=== PATIENT | female | born 1955 | race Caucasian/White ===

== ENCOUNTER 2018-10-18 10:19 | Emergency (ER) | payer OTHER ==
[2018-10-18] MEDS ORDERED: NA CHLORIDE 0.9% 1,000 ML ONE (10:54)
[2018-10-18 11:04] LABS: Absolute Lymphocytes (CBC) 1.3 K/uL (0.7-4.9); Absolute Monocytes 0.9 K/uL (0.1-1.3); Absolute Neutrophil 10.4 K/uL (1.8-8.0); Basophils % 0.3 % (0-1.3); Hematocrit 38.4 % (36.0-45.0); Lymphocytes % 10.1 % (15.3-44.8); MPV 9.7 fL (7.6-11.3); RBC Red Blood Cell Count 4.09 M/uL (3.86-4.86)
[2018-10-18] MEDS ORDERED: LIDOCAINE 1% MPF 5 ML VIAL ONE (11:06)
[2018-10-18 11:29] LABS: Potassium 3.5 mmol/L (3.5-5.1)
--- NOTE | 2018-10-18 12:14 | RAD REPORT ---
EXAM DESCRIPTION: CT - Chest For Pe Angio - 10/18/2018 11:58 am CLINICAL HISTORY: cough COMPARISON: None. TECHNIQUE: Dynamically enhanced axial 3 mm thick images of the chest were obtained during administra tion of <100> mL Isovue 370 IV contrast. Coronal and oblique reconstruction images were generated and reviewed. Exam utilizes a protocol for optimal evaluation of pulmonary arterial tree. Maximum intensity projections 3D imaging was utilized All CT scans are performed using dose optimization technique as appropriate and may include automated exposure control or mA/KV adjustment according to patient size. FINDINGS: A pulmonary embolus is not seen. Pulmonary artery is mildly enlarged which can be seen wit h pulmonary arterial hypertension A thoracic aortic aneurysm is not noted. A pleural effusion is not seen. A pericardial effusion is not seen. A lung consolidation is not present. IMPRESSION: Negative for a pulmonary embolism.
--- NOTE | 2018-10-18 12:23 | ER ---
Nurse's Notes [facility] Name: Dayanna Iniguez Age: 63 yrs Sex: Female : 1955 Arrival Date: 10/18/2018 Time: 10:23 Bed 7 Private MD: Diagnosis: Bronchitis, not specified as acute or chronic Presentation: 10/18 10:23 Presenting complaint: Patient states: i have this cough for 3 weeks now, went to my allergologist, and gave me a Rx of doxycycline, Tessalon pearls and a shot of steroid and i went to [facility], for some reason they gave me a haldol shot; xray was taken and they said it was clear; denies fever and chills; reports night sweats;. Transition of care: patient was not received from another setting of care. Onset of symptoms was October 18, 2018. Risk Assessment: Do you want to hurt yourself or someone else? Patient reports no desire to harm self or others. Initial Sepsis Screen: Does the patient meet any 2 criteria? No. Patient's initial sepsis screen is negative. Does the patient have a suspected source of infection? No. Patient's initial sepsis screen is negative. Care prior to arrival: None. 10:23 Method Of Arrival: Ambulatory 10:23 Acuity: JAYDON 3 hj Historical: - Allergies: 10:28 Reglan; 10:28 Haldol; - Home Meds: 10:28 Cymbalta 60 mg oral cpDR 1 cap once daily [Active]; Neurontin 300 mg Oral cap 1 cap 3 hj times per day [Active]; - PMHx: 10:28 neuropahty; - PSHx: 10:28 Appendectomy; Hysterectomy; rotator; hj - Immunization history:: Adult Immunizations up to date. - Social history:: Smoking status: Patient/guardian denies using tobacco. - Ebola Screening: : No symptoms or risks identified at this time. Screenin:35 Abuse screen: Denies threats or abuse. Denies injuries from another. Nutritional sv screening: No deficits noted. Tuberculosis screening: No symptoms or risk factors identified. Fall Risk None identified. Assessment: 10:35 General: Appears in no apparent distress. uncomfortable, well developed, Behavior is sv cooperative, appropriate for age. Pain: Complains of pain in throat Pain currently is 9 out of 10 on a pain scale. Quality of pain is described as sore. Neuro: Level of Consciousness is awake, alert, obeys commands, Oriented to person, place, time, situation, Moves all extremities. Full function Gait is steady, Speech hoarse. Respiratory: Reports cough that is non-productive, dry, hacking, persistent Airway is patent Respiratory effort is even, unlabored, Respiratory pattern is regular, symmetrical. Derm: Skin is pink, warm \T\ dry. Musculoskeletal: Range of motion: intact in all extremities. 11:52 Reassessment: Patient appears in no apparent distress at this time. Patient and/or sv family updated on plan of care and expected duration. Pain level reassessed. Patient is alert, oriented x 3, equal unlabored respirations, skin warm/dry/pink. Patient states symptoms have improved. Vital Signs: 10:28 BP 131 / 68; Pulse 82; Resp 18; Temp 98.1(O); Pulse Ox 100% on R/A; Weight 88 kg; hj Height 5 ft. 5 in. (165.10 cm); Pain 9/10; 11:06 BP 108 / 73; Pulse 70; Resp 16; Pulse Ox 100% on Nebulizer Mask; sv 11:51 BP 119 / 70; Pulse 70; Resp 16; Pulse Ox 100% ; sv 12:44 BP 112 / 72; Pulse 64; Resp 19; Pulse Ox 100% on R/A; ae4 10:28 Body Mass Index 32.28 (88.00 kg, 165.10 cm) ED Course: 10:23 Patient arrived in ED. hj 10:26 Triage completed. hj 10:29 Arm band placed on right wrist. hj 10:31 Jovana Hayes FNP-C is PHCP. snw 10:31 Bret Tirado MD is Attending Physician. snw 10:35 Patient has correct armband on for positive identification. Bed in low position. Call sv light in reach. Pulse ox on. NIBP on. Door closed. Head of bed elevated. 10:36 Jocelyn Santana, GRAYSON is Primary Nurse. sv 10:40 Initial lab(s) drawn, by co, sent to lab. Inserted saline lock: 20 gauge in left sv antecubital area, using aseptic technique. Blood collected. Flushed left antecubital with 5 ml normal saline. 10:54 Initial Neb Treatment Given as ordered Patient was instructed and evaluated on sv procedure Patient tolerated procedure well without adverse effect. 11:[address] via wheelchair. sv 11:58 CT Chest For PE Angio In Process Unspecified. EDMS 12:45 No provider procedures requiring assistance completed. IV discontinued, intact, ae4 bleeding controlled, No redness/swelling at site. Pressure dressing applied. Administered Medications: 10:50 Drug: NS 0.9% 1000 ml Route: IV; Rate: 75 ml/hr; Site: left antecubital; ae4 12:45 Follow up: IV Status: Order to discontinue infusion; IV Intake: 300ml ; Patient ae4 discharged. Intake: 12:45 IV: 300ml; Total: 300ml. ae4 Outcome: 12:22 Discharge ordered by MD. snw 12:46 Discharged to home ambulatory. ae4 12:46 Condition: stable 12:46 Discharge instructions given to patient, Instructed on discharge instructions, follow up and referral plans. Demonstrated understanding of instructions. 12:46 Patient left the ED. ae4 Signatures: Dispatcher [employer] EDMS Jocelyn Santana, RN RN Jovana Hayes, CATTLE SORTER-C CATTLE SORTER-Csnw Wojciech Sumner RN RN Giovanni Tiwari, RN RN ae4 Corrections: (The following items were deleted from the chart) 10:29 10:28 Pulse 82bpm; Resp 18bpm; Pulse Ox 100% RA; Temp 98.1F Oral; 88 kg; Height 5 ft. 5 hj in.; BMI: 32.2; Pain 9/10; hj
--- NOTE | 2018-10-18 12:23 | EDPHYS ---
Physician Documentation [facility] Name: Dayanna Iniguez Age: 63 yrs Sex: Female : 1955 Arrival Date: 10/18/2018 Time: 10:23 Bed 7 Private MD: ED Physician Bret Tirado HPI: 10/18 10:45 This 63 yrs old Female presents to ER via Ambulatory with complaints of snw Non-Productive Cough. 10:45 The patient or guardian reports airway noise, cough, with no sputum. Severity of snw symptoms: At their worst the symptoms were moderate, severe. Associated signs and symptoms: The patient has no apparent associated signs or symptoms. It is unknown whether or not the patient has had similar symptoms in the past. x2, personal caregiver and [facility]. dry cough x 3 weeks. Historical: - Allergies: 10:28 Reglan; hj 10:28 Haldol; hj - Home Meds: 10:28 Cymbalta 60 mg oral cpDR 1 cap once daily [Active]; Neurontin 300 mg Oral cap 1 cap 3 hj times per day [Active]; - PMHx: 10:28 neuropahty; hj - PSHx: 10:28 Appendectomy; Hysterectomy; rotator; hj - Immunization history:: Adult Immunizations up to date. - Social history:: Smoking status: Patient/guardian denies using tobacco. - Ebola Screening: : No symptoms or risks identified at this time. ROS: 10:44 Constitutional: Negative for fever, chills, and weight loss, Eyes: Negative for injury, snw pain, redness, and discharge, ENT: Negative for injury, pain, and discharge, Neck: Negative for injury, pain, and swelling, Cardiovascular: Negative for chest pain, palpitations, and edema, Abdomen/GI: Negative for abdominal pain, nausea, vomiting, diarrhea, and constipation, Back: Negative for injury and pain, : Negative for injury, bleeding, discharge, and swelling, MS/Extremity: Negative for injury and deformity, Skin: Negative for injury, rash, and discoloration, Neuro: Negative for headache, weakness, numbness, tingling, and seizure, Psych: Negative for depression, anxiety, suicide ideation, homicidal ideation, and hallucinations. 10:44 Respiratory: Positive for cough, with no reported sputum. Exam: 10:43 Head/Face: Normocephalic, atraumatic. Eyes: Pupils equal round and reactive to light, snw extra-ocular motions intact. Lids and lashes normal. Conjunctiva and sclera are non-icteric and not injected. Cornea within normal limits. Periorbital areas with no swelling, redness, or edema. 10:43 Neck: Trachea midline, no thyromegaly or masses palpated, and no cervical lymphadenopathy. Supple, full range of motion without nuchal rigidity, or vertebral point tenderness. No Meningismus. Chest/axilla: Normal chest wall appearance and motion. Nontender with no deformity. No lesions are appreciated. Cardiovascular: Regular rate and rhythm with a normal S1 and S2. No gallops, murmurs, or rubs. Normal PMI, no JVD. No pulse deficits. Abdomen/GI: Soft, non-tender, with normal bowel sounds. No distension or tympany. No guarding or rebound. No evidence of tenderness throughout. Back: No spinal tenderness. No costovertebral tenderness. Full range of motion. Skin: Warm, dry with normal turgor. Normal color with no rashes, no lesions, and no evidence of cellulitis. MS/ Extremity: Pulses equal, no cyanosis. Neurovascular intact. Full, normal range of motion. Neuro: Awake and alert, GCS 15, oriented to person, place, time, and situation. Cranial nerves II-XII grossly intact. Motor strength 5/5 in all extremities. Sensory grossly intact. Cerebellar exam normal. Normal gait. 10:43 Constitutional: The patient appears alert, awake, anxious, flushed 10:43 ENT: TM's: erythema, that is mild, on the left, Examination of the other ear shows no obvious abnormality, Mouth: is normal, Posterior pharynx: erythema, Voice: is hoarse. 10:43 Respiratory: the patient does not display signs of respiratory distress, Respirations: shallow respirations, Breath sounds: are clear throughout, harsh, paroxysmal, forced cough. Vital Signs: 10:28 BP 131 / 68; Pulse 82; Resp 18; Temp 98.1(O); Pulse Ox 100% on R/A; Weight 88 kg; hj Height 5 ft. 5 in. (165.10 cm); Pain 9/10; 11:06 BP 108 / 73; Pulse 70; Resp 16; Pulse Ox 100% on Nebulizer Mask; sv 11:51 BP 119 / 70; Pulse 70; Resp 16; Pulse Ox 100% ; sv 12:44 BP 112 / 72; Pulse 64; Resp 19; Pulse Ox 100% on R/A; ae4 10:28 Body Mass Index 32.28 (88.00 kg, 165.10 cm) hj MDM: 10:33 Patient medically screened. snw 12:25 Data reviewed: vital signs, nurses notes. Data interpreted: Pulse oximetry: on room air snw is 100 %. Interpretation: normal. Counseling: I had a detailed discussion with the patient and/or guardian regarding: the historical points, exam findings, and any diagnostic results supporting the discharge/admit diagnosis, lab results, radiology results, the need for outpatient follow up, to return to the emergency department if symptoms worsen or persist or if there are any questions or concerns that arise at home. Special discussion: Based on the history and exam findings, there is no indication for further emergent testing or inpatient evaluation. I discussed with the patient/guardian the need to see the primary care provider for further evaluation of the symptoms. I discussed with the patient/guardian the need to see the endoscopic technician for further evaluation of the symptoms. 10/18 10:32 Order name: CBC with Diff; Complete Time: 11:29 snw 10/18 10:32 Order name: Chem 7; Complete Time: 11:33 snw 10/18 10:32 Order name: CT Chest For PE Angio; Complete Time: 12:21 snw 10/18 10:32 Order name: Blood Culture Adult (2) snw 10/18 10:54 Order name: Misc. Order: Lidocaine 3ml in 6ml NS nebulized with 6-8L flow; Complete snw Time: 11:06 Administered Medications: 10:50 Drug: NS 0.9% 1000 ml Route: IV; Rate: 75 ml/hr; Site: left antecubital; ae4 12:45 Follow up: IV Status: Order to discontinue infusion; IV Intake: 300ml ; Patient ae4 discharged. Disposition: 15:53 Co-signature as Attending Physician, Bret Tirado MD. rn Disposition: 10/18/18 12:22 Discharged to Home. Impression: Bronchitis, not specified as acute or chronic. - Condition is Stable. - Discharge Instructions: Acute Bronchitis, Adult, Cool Mist Vaporizer, Cough, Adult. - Work release form, Medication Reconciliation Form, Thank You Letter, Antibiotic Education, Prescription Opioid Use form. - Follow up: Private Physician; When: 2 - 3 days; Reason: Recheck today's complaints, Continuance of care, Re-evaluation by your physician. Follow up: Emergency Department; When: As needed; Reason: Worsening of condition. Signatures: Dispatcher [employer] EDJocelyn Corbin RN RN Jovana Murdock, CANNING MACHINE OPERATOR-C CANNING MACHINE OPERATOR-Csnw Bret Tirado MD MD rn Joaquin, Henry, RN RN hj Elliott, Andrea, RN RN ae4 Corrections: (The following items were deleted from the chart) 12:46 12:22 10/18/2018 12:22 Discharged to Home. Impression: Bronchitis, not specified as ae4 acute or chronic. Condition is Stable. Forms are Medication Reconciliation Form, Thank You Letter, Antibiotic Education, Prescription Opioid Use. Follow up: Private Physician; When: 2 - 3 days; Reason: Recheck today's complaints, Continuance of care, Re-evaluation by your physician. Follow up: Emergency Department; When: As needed; Reason: Worsening of condition. snw
== END 2018-10-18 12:46 | disposition home or self-care (01) ==
LOC: ER 10:19
DX: J40 Bronchitis, not specified as acute or chronic (principal); Z88.5 Allergy status to narcotic agent; Z88.8 Allergy status to other drugs, medicaments and biological substances
CPT/HCPCS: 36415; 71275; 80048; 85025; 87040; 96360; 96361; 99284; J7030; Q9967